=== PATIENT | male | born 1995 | race Caucasian/White ===

== ENCOUNTER 2019-04-16 10:37 | Emergency (ER) | payer OTHER ==
--- OUTSIDE RECORDS SUMMARY | 2019-04-16 10:45 | XMS REPORT | Continuity of Care Document ---
:1995 External Reference #:[id number] Author Name Nasir Flores MD Address [address] [facility] [place] [address] Care Team Providers Name Role Phone Nasir Flores MD FACP Care Team Information Director [facility] Unavailable Nasir Flores MD FACP Primary Care Physician Unavailable Payers Date Identification Numbers Payment Provider Subscriber Policy Number: [id number] [facility] Meredith Calvin [employer] Group Number: [id number] [id number] PayID: [id number] [place] [address] Family History Date Family Member(s) Observation Comments Father 69 Father White Mother 55 Mother White Siblings None Social History Type Date Description Comments Sex Unknown Marital Status Single Occupation Student Work Status Currently Working Learning Barriers None Cigarette Use Occasionally Smokes Cigarettes ETOH Use Drinks 6 Alcoholic Beverages Per Week Exercise Type/Frequency Exercises 5 times a week Exercise Type/Frequency Exercises regularly Guns in Home No Currently Active Patient is currently sexually active Condom Use Occasionally STD's No STD History Allergies, Adverse Reactions, Alerts Description No Known Drug Allergies Medications Active Medications SIG Qnty Indications Ordering Date Provider Clotrimazole apply 1 28.350gm R21 Nasir Simpson 04/03/2019 Anti-Fungal application MD Sandra 1% Cream topically to affected area 2 times per day for 14 days for fungal infection of skin History Medications No Active Medications Unknown 03/28/2019 - 04/03/2019 Vital Signs Date Vital Result Comment 04/03/2019 12:23pm Body Temperature 97.9 F O2 % BldC Oximetry 98 % Heart Rate 55 /min BP Systolic 120 mmHg BP Diastolic 80 mmHg BMI (Body Mass Index) 33.8 kg/m2 Weight 260.00 lb Height 73.50 inches 6'1.50" Encounters Type Date Location Provider Dx Diagnosis Office Visit 04/03/2019 Main Office Nasir Flores G47.33 Obstructive sleep 12:00p apnea (adult) (pediatric) R06.83 Snoring R21 Rash and other nonspecific skin eruption Z11.3 Encntr screen for infections w sexl mode of transmiss Plan of Treatment 04/03/2019 - Nasir Flores MDG47.33 Obstructive sleep apnea (adult) ( pediatric)Comments:After examination when questioned about snoring and ODELL symptoms he informed me that he snores very loud and he is always tired in the morning and has to use lots of coffee in the day time. He admits to falling a sleep after meals. High clinical probability of ODELL.Patient educated in this regard and he verbalized understanding.Lifestyle and dietary modifications advised.Referral:Keith Dimas MD, Sleep Disord,Diag/SxdtgpN20.83 OoczqwdP18 Rash and other nonspecific skin eruptionNew Medication:Clotrimazole Anti-Fungal 1 % - apply 1 application topically to affected area 2 times per day for 14days for fungal infection of skinComments:Lifestyle modifications advised. Treatment options with potential risks, general precautions, follow up recommendations, and alternative treatment options discussed with patient in detail. Patient verbalized understanding.Z11.3 Encounter for screening for infections with a predominantly sexual mode of transmissionComments:At request tests initiated.Asymptomatic.
[2019-04-16 11:23] VITALS: BP 127/58
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
== END 2019-04-16 12:30 | disposition home or self-care (01) ==
LOC: UCEAST 10:37
DX: S00.12XA Contusion of left eyelid and periocular area, initial encounter (principal); Y04.0XXA Assault by unarmed brawl or fight, initial encounter; J32.0 Chronic maxillary sinusitis; F17.210 Nicotine dependence, cigarettes, uncomplicated
CPT/HCPCS: 70486; 99211; G0463